=== PATIENT | female | born 1980 | race Caucasian/White ===

== ENCOUNTER 2022-04-25 16:00 | Emergency (ER) | payer OTHER ==
[2022-04-25] MEDS ORDERED: Famotidine 20 MG Tab PO ONE (16:10)
[2022-04-25] MEDS ORDERED: Cetirizine 10 MG Tab PO ONE (16:11)
== END 2022-04-25 17:21 | disposition home or self-care (01) ==
LOC: JP.ED 16:00
DX: L50.2 Urticaria due to cold and heat (principal); Z88.8 Allergy status to other drugs, medicaments and biological substances
CPT/HCPCS: 99283; A9270